=== PATIENT | male | born 1955 | race Caucasian/White ===

== ENCOUNTER → 2017-12-05 | Day surgery (SDC) | payer MEDICARE ==
[~2017-12-05] MED LIST: CEFAZOLIN SOD 1 GM VIAL ONE; DEXAMETHASONE SOD PHOS INJ 4 MG/ML VIAL ONE; FENTANYL CITRATE/PF 100MCG/2 ML INJ ONE; IOPAMIDOL 610MG/1ML 300 MG/ML VIAL IV ONE; LIDOCAINE HCL 2% LOCAL INJ 5 ML SDV VIAL INJ ONE; MIDAZOLAM HCL 2 MG/2 ML VIAL ONE; ONDANSETRON HCL INJ 2 MG/ML VIAL ONE; PROPOFOL IV EMULSION 10 MG/ML 20 ML VIAL ONE; SEVOFLURANE INHAL SOLN 250 ML PEN BTL ONE; SODIUM CHLORIDE 0.9% 1000ML 1,000 ML ONE; TAMSULOSIN HCL0.4 MG
--- NOTE | 2017-12-05 22:37 | Operative Report ---
DATE OF PROCEDURE: December 05, 2017 SERVICE: Urology. PREOPERATIVE DIAGNOSES: 1. Bilateral hydronephrosis, more prominent on the right side. 2. Bilateral double-J stent. 3. Bilateral convoluted and dilated ureters. 4. Renal failure. 5. History of nephrolithiasis. POSTOPERATIVE DIAGNOSES: 1. Bilateral hydronephrosis, more prominent on the right side. 2. Bilateral double-J stent. 3. Bilateral convoluted and dilated ureters. 4. Renal failure. 5. History of nephrolithiasis. OPERATIONS PERFORMED: 1. Cystoscopy, removal of double-J stent from the left side. 2. Left retrograde pyelograms under fluoroscopic control. 3. Left ureteroscopy. 4. Placement of double-J stent 6-Mexican 24 cm long to the left side. 5. Removal of stent from the right side not related to the contralateral side. 6. Right retrograde pyelograms under fluoroscopic control. 7. Right ureteroscopy. 8. Placement of stent 7-Mexican 24 cm long to the right side. 9. Interpretation of x-ray, radiologist not present. 10. Supervision of fluoroscopy, radiologist not present. DATA ACQUISITION TECHNICIAN: None. ANESTHESIA: General. CLINICAL INDICATION NOTE: This is a 62-year-old well known to me. He has chronic renal failure, diabetes mellitus, bilateral hydronephrosis, and bilateral stents. His creatinine is about 3. Patient was brought for reassessment and change of stent. DESCRIPTION OF PROCEDURE AND FINDINGS: After proper level of anesthesia was achieved, the patient was placed in lithotomy position, prepped and draped in usual sterile fashion. Urethra inspected is unremarkable, but the outlet is obstructed somewhat by enlarged prostate. Bladder is trabeculated. Double-J stent is protruding from both ureteral orifices. The left double-J stent was removed. Wire was kept in place. Retrograde pyelograms demonstrating dilated upper collecting system and convoluted ureter. A guidewire was kept in place and a flexible ureteroscopy was done. No intrinsic lesions were identified. The wire was kept in place, and a 6-Mexican 24 cm long double J-stent was properly positioned on the left side. Following this, the same procedure was repeated in the contralateral side. interpretation of x-ray was done by me as well as supervision of fluoroscopy, radiologist not present. Patient tolerated the procedure well, was transferred in satisfactory condition to recovery room. Patient will be followed. Postop instruction given. Job#: [id number]
== END | disposition home or self-care (01) ==
LOC: OR 10:43
PROVIDERS: ATTEND Urology
DX: N13.30 Unspecified hydronephrosis (principal); Z46.6 Encounter for fitting and adjustment of urinary device; N28.9 Disorder of kidney and ureter, unspecified; N32.89 Other specified disorders of bladder; Z87.442 Personal history of urinary calculi; E11.22 Type 2 diabetes mellitus with diabetic chronic kidney disease; I12.9 Hypertensive chronic kidney disease with stage 1 through stage 4 chronic kidney disease, or unspecified chronic kidney disease; N18.9 Chronic kidney disease, unspecified; Z01.810 Encounter for preprocedural cardiovascular examination
CPT/HCPCS: 52332; 52351; 74420; 93005; C2617; J0690; J1100; J2001; J2250; J2405; J7030; Q9967

== ENCOUNTER → 2018-04-10 | Day surgery (SDC) | payer MEDICARE ==
[~2018-04-10] MED LIST changes: +BELLADONNA/OPIUM 30 MG SUPP RC ONE; +IOPAMIDOL 300MG/ML 50ML INFUS..BTL IV ONE; -IOPAMIDOL 610MG/1ML 300 MG/ML VIAL IV ONE; -SODIUM CHLORIDE 0.9% 1000ML 1,000 ML ONE; -TAMSULOSIN HCL0.4 MG; +TAMSULOSIN HCL0.4 MG PO
[2018-04-10 08:30] LABS: ANION GAP 15.3 mmol/L (8-16); CALCIUM 9.3 mg/dL (8.4-10.2); CREATININE, SERUM 2.53 mg/dL (0.72-1.25); POTASSIUM 4.3 mmol/L (3.5-5.1)
--- NOTE | 2018-04-10 11:41 | Operative Report ---
DATE OF PROCEDURE: April 10, 2018 SERVICE: Urology. PREOPERATIVE DIAGNOSES 1. Bilateral hydronephrosis. 2. Bilateral hydroureter with convoluted ureter. 3. Bilateral double-J stent. 4. Chronic renal failure. POSTOPERATIVE DIAGNOSES 1. Bilateral hydronephrosis. 2. Bilateral hydroureter with convoluted ureter. 3. Bilateral double-J stent. 4. Chronic renal failure. OPERATION PERFORMED 1. Cystoscopy and removal of double-J stent from the right side. 2. Right retrograde pyelogram under fluoroscopic control. 3. Right ureteroscopy. 4. Placement of double-J stent to the right side, 7 Slovenian, 24 cm long. 5. Removal of double-J stent from the left side. 6. Left retrograde pyelogram under fluoroscopic control, not related to the other side. 7. Left ureteroscopy, not related to the other side. 8. Placement of double-J stent, 7 Slovenian, 24 cm long, to the left side. 9. Interpretation of x-ray. Radiologist not present. 10. Supervision of fluoroscopy. Radiologist not present. CARPENTERS SUPERVISOR: None. ANESTHESIA: General. CLINICAL INDICATION NOTE: This is a 62-year-old patient with chronic renal failure, bilateral hydro and hydroureter. He has stents on both sides. He was brought for reassessment and probably change of stent. The patient has renal failure. However, he is not requiring dialysis. DESCRIPTION OF PROCEDURE AND FINDINGS: After proper level of anesthesia was achieved, the patient was placed in lithotomy position, prepped and draped the usual sterile fashion. Urethra was inspected and was unremarkable. Bladder outlet is somewhat obstructed by large prostate. Bladder is trabeculated. Double-J stent is protruding from both sides. No tumor seen. The double-J stent from the right side was removed. An open-ended catheter was inserted. Retrograde pyelogram demonstrated massive hydro and convoluted ureter with section of dilation. A guidewire was kept in place, and a flexible ureteroscopy was done. No intrinsic lesions were identified. Ureter is quite convoluted. The wire was kept in place, and a 7-Slovenian, 24 cm long, double-J stent was properly positioned on the right side. Following this, the same procedure was repeated on the other side, not related to the right side. Again, the findings were similar. Hydronephrosis was somewhat less. No tumor or foreign body seen. After ureteroscopy, a guidewire was kept in place, and the same double-J stent, 7 x 24, was placed. Patient tolerated the procedure well and was transferred in satisfactory condition to the recovery room. Will be followed as outpatient. Job#: [id number]
== END | disposition home or self-care (01) ==
LOC: OR 07:23
PROVIDERS: ATTEND Urology
DX: N13.30 Unspecified hydronephrosis (principal); Z46.6 Encounter for fitting and adjustment of urinary device; N18.4 Chronic kidney disease, stage 4 (severe); N40.0 Benign prostatic hyperplasia without lower urinary tract symptoms; N32.89 Other specified disorders of bladder; N28.89 Other specified disorders of kidney and ureter; R00.1 Bradycardia, unspecified; Z01.810 Encounter for preprocedural cardiovascular examination
CPT/HCPCS: 36415; 52332; 52351; 74420; 80048; 93005; J0690; J1100; J2001; J2250; J2405; Q9967

== ENCOUNTER → 2018-07-31 | Day surgery (SDC) | payer MEDICARE ==
[2018-07-25 12:01] LABS: INR 0.94; PARTIAL THROMBOPLASTIN TIME 30.5 seconds (23.8-35.5); PROTHROMBIN TIME 13.4 seconds (11.9-14.5)
[~2018-07-31] MED LIST changes: -BELLADONNA/OPIUM 30 MG SUPP RC ONE; +HYDROCODONE PO; -IOPAMIDOL 300MG/ML 50ML INFUS..BTL IV ONE; +IOPAMIDOL 610MG/1ML 300 MG/ML VIAL IV ONE; +TYLENOL PO
[2018-07-31 11:30] VITALS: BP 123/71
--- NOTE | 2018-07-31 12:40 | Operative Report ---
DATE OF PROCEDURE: July 31, 2018 SERVICE: Urology. PREOPERATIVE DIAGNOSES: 1. Bilateral hydronephrosis. 2. Bilateral ureteral stents. 3. Renal failure. 4. Microhematuria. POSTOPERATIVE DIAGNOSES: 1. Bilateral hydronephrosis. 2. Bilateral ureteral stents. 3. Renal failure. 4. Microhematuria. OPERATIONS PERFORMED: 1. Cystoscopy and removal of left double-J stent. Not related to the contralateral side. 2. Left retrograde pyelograms under fluoroscopic control. 3. Left ureteroscopy. 4. Placement of double-J stent 7-Paraguayan 24 cm long to the left side. 5. Removal of double-J stent from the right side. 6. Right retrograde pyelograms under fluoroscopic control. 7. Right ureteroscopy. 8. Placement of double-J stent 7-Paragu[place] 24 cm long to the right side. 9. Interpretation of x-ray. Radiologist not present. 10. Supervision of fluoroscopy. Radiologist not present. ROOM SERVICE SUPERVISOR: None. ANESTHESIA: General. CLINICAL INDICATION NOTE: This is a 63-year-old patient with a history of acute on chronic renal failure, who has bilateral hydronephrosis and hydroureter and is treated with double-J stents. He was brought for reassessment and change of stents. Procedure was discussed with the patient. Potential benefits and complications discussed, explained and accepted. DESCRIPTION OF PROCEDURE AND FINDINGS: After the proper level of anesthesia was achieved, the patient was placed in lithotomy position and prepped and draped in sterile fashion. Urethra inspected, is unremarkable. The outlet is minimally obstructed by a small prostate. Bladder is somewhat trabeculated. Double-J stents are present on both sides. The left double-J stent was out to the urethral meatus. A guidewire was passed through it and advanced to the kidney. Open-end catheter inserted and retrograde pyelogram demonstrating some dilation and convoluted ureter as well as some dilation of the upper collecting system. The guidewire was kept in place, and a flexible ureteroscopy was done. No intrinsic lesions were identified in the pelvis or ureters. Wire was kept in place, and a double-J stent 7-Paraguayan 24 cm long was properly positioned on the left side. Following this, same procedure was repeated in the contralateral side. Again no intrinsic lesions were identified on ureteroscopy, and following the ureteroscopy, a double-J stent 7-Paraguayan 24 cm long was properly positioned. The bladder was then irrigated. The scope was removed, and patient was transferred in satisfactory condition to recovery room. He will be followed as outpatient. Job#: [id number]
== END | disposition home or self-care (01) ==
LOC: OR 07:56
PROVIDERS: ATTEND Urology
DX: N13.30 Unspecified hydronephrosis (principal); R31.29 Other microscopic hematuria; Z46.6 Encounter for fitting and adjustment of urinary device; I12.0 Hypertensive chronic kidney disease with stage 5 chronic kidney disease or end stage renal disease; N18.6 End stage renal disease; Z99.2 Dependence on renal dialysis; Z01.810 Encounter for preprocedural cardiovascular examination; Z01.812 Encounter for preprocedural laboratory examination
CPT/HCPCS: 36415; 52332; 74420; 85610; 85730; 93005; C2617; J0690; J1100; J2001; J2250; J2405; J2704; Q9967

== ENCOUNTER 2021-09-16 19:43 | Inpatient (IN) | payer MEDICARE ==
[~2021-09-16] VITALS: Ht 167.6 cm; Wt 68.0 kg
[~2021-09-16 19:43] MED LIST changes: +AMLODIPINE BESYL5 MG PO; +CARVEDILOL25 MG PO; -CEFAZOLIN SOD 1 GM VIAL ONE; -DEXAMETHASONE SOD PHOS INJ 4 MG/ML VIAL ONE; -FENTANYL CITRATE/PF 100MCG/2 ML INJ ONE; -IOPAMIDOL 610MG/1ML 300 MG/ML VIAL IV ONE; -LIDOCAINE HCL 2% LOCAL INJ 5 ML SDV VIAL INJ ONE; -MIDAZOLAM HCL 2 MG/2 ML VIAL ONE; -ONDANSETRON HCL INJ 2 MG/ML VIAL ONE; -PROPOFOL IV EMULSION 10 MG/ML 20 ML VIAL ONE; -SEVOFLURANE INHAL SOLN 250 ML PEN BTL ONE
[2021-09-16 20:20] LABS: BASOPHILS # (AUTO) 0.1 (0.0-0.1); BASOPHILS % 0.7 % (0.0-1.0); EOSINOPHILS # (AUTO) 0.1 (0.0-0.4); EOSINOPHILS % 1.5 % (0.0-6.0); HEMATOCRIT 44.7 % (38.2-49.6); HEMOGLOBIN 14.1 g/dL (14.0-18.0); LYMPHOCYTES # (AUTO) 1.6 (1.0-3.2); LYMPHOCYTES % 16.9 % (18.0-39.1); MEAN CORPUSCULAR HEMOGLOBIN 29.6 pg (28-32); MEAN CORPUSCULAR HGB CONC 31.5 g/dL (31-35); MEAN CORPUSCULAR VOLUME 93.7 fL (81-99); MONOCYTES # (AUTO) 0.9 (0.2-0.8); MONOCYTES % 9.5 % (4.4-11.3); NEUTROPHILS # (AUTO) 6.5 (2.1-6.9); NEUTROPHILS % 71.2 % (38.7-80.0); PLATELET COUNT 222 x10e3/uL (140-360); RED BLOOD COUNT 4.77 x10e6/uL (4.3-5.7); RED CELL DISTRIBUTION WIDTH 14.4 % (11.7-14.4)
[2021-09-16 20:27] LABS: INR 1.09; PARTIAL THROMBOPLASTIN TIME 29.2 seconds (23.8-35.5)
[2021-09-16 20:41] LABS: ALBUMIN 3.4 g/dL (3.5-5.0); ANION GAP 15.3 mmol/L (8-16); CALCIUM 8.6 mg/dL (8.4-10.2); CREATININE, SERUM 2.75 mg/dL (0.72-1.25); POTASSIUM 4.3 mmol/L (3.5-5.1)
[2021-09-16 20:47] LABS: CREATINE KINASE MB 3.9 ng/mL (0-5.0)
[2021-09-16] MEDS ORDERED: FUROSEMIDE INJ 10 MG/ML 4 ML VIAL IV ONE (21:15)
[2021-09-17] VITALS (10 sets, daily range): BP systolic 137–169; BP diastolic 73–98
[2021-09-17 06:23] LABS: BASOPHILS # (AUTO) 0.1 (0.0-0.1); BASOPHILS % 0.7 % (0.0-1.0); EOSINOPHILS # (AUTO) 0.3 (0.0-0.4); EOSINOPHILS % 3.2 % (0.0-6.0); HEMATOCRIT 42.1 % (38.2-49.6); HEMOGLOBIN 13.4 g/dL (14.0-18.0); LYMPHOCYTES # (AUTO) 2.4 (1.0-3.2); LYMPHOCYTES % 27.2 % (18.0-39.1); MEAN CORPUSCULAR HEMOGLOBIN 29.5 pg (28-32); MEAN CORPUSCULAR HGB CONC 31.8 g/dL (31-35); MEAN CORPUSCULAR VOLUME 92.7 fL (81-99); MONOCYTES % 10.9 % (4.4-11.3); NEUTROPHILS # (AUTO) 5.1 (2.1-6.9); NEUTROPHILS % 57.9 % (38.7-80.0); PLATELET COUNT 188 x10e3/uL (140-360); RED BLOOD COUNT 4.54 x10e6/uL (4.3-5.7); RED CELL DISTRIBUTION WIDTH 14.3 % (11.7-14.4)
[2021-09-17 06:38] LABS: ANION GAP 14.9 mmol/L (8-16); CALCIUM 8.7 mg/dL (8.4-10.2); CREATININE, SERUM 2.98 mg/dL (0.72-1.25); POTASSIUM 3.9 mmol/L (3.5-5.1)
[2021-09-17 06:57] LABS: CREATINE KINASE MB 3.2 ng/mL (0-5.0)
[2021-09-17] MEDS: FUROSEMIDE INJ 10 MG/ML 4 ML VIAL IV SCH ×2 (09:10→17:03)
[2021-09-17] MEDS: AMLODIPINE BESYLATE 5 MG TAB PO SCH (12:10)
[2021-09-17] MEDS: CARVEDILOL 3.125 MG TAB PO SCH (17:03)
[2021-09-17] MEDS: TAMSULOSIN HCL 0.4 MG CAP PO SCH (20:12)
[2021-09-18] VITALS (8 sets, daily range): BP systolic 131–157; BP diastolic 79–94
[2021-09-18 05:33] LABS: ANION GAP 15.3 mmol/L (8-16); CALCIUM 8.7 mg/dL (8.4-10.2); CREATININE, SERUM 3.12 mg/dL (0.72-1.25); POTASSIUM 3.3 mmol/L (3.5-5.1)
[2021-09-18] MEDS: AMLODIPINE BESYLATE 5 MG TAB PO SCH (08:50)
[2021-09-18] MEDS: CARVEDILOL 3.125 MG TAB PO SCH ×2 (08:50→17:23)
[2021-09-18] MEDS: FUROSEMIDE INJ 10 MG/ML 4 ML VIAL IV SCH ×2 (08:50→17:23)
[2021-09-18] MEDS ORDERED: POTASSIUM CHLORIDE 20 MEQ TAB CR PO ONE (15:00)
[2021-09-18] MEDS: TAMSULOSIN HCL 0.4 MG CAP PO SCH (16:43)
[2021-09-19] VITALS (9 sets, daily range): BP systolic 134–150; BP diastolic 78–92
[2021-09-19 06:21] LABS: ANION GAP 17.5 mmol/L (8-16); CALCIUM 9.2 mg/dL (8.4-10.2); CREATININE, SERUM 3.76 mg/dL (0.72-1.25); POTASSIUM 3.5 mmol/L (3.5-5.1)
[2021-09-19] MEDS: CARVEDILOL 3.125 MG TAB PO SCH ×2 (09:00→15:34)
[2021-09-19] MEDS ORDERED: IOPAMIDOL 300MG/ML 50ML INFUS..BTL IV ONE (09:12)
[2021-09-19] MEDS ORDERED: BELLADONNA/OPIUM 30 MG SUPP RC ONE (09:13)
[2021-09-19] MEDS: FUROSEMIDE INJ 10 MG/ML 4 ML VIAL IV SCH ×2 (09:18→15:34)
[2021-09-19] MEDS ORDERED: FENTANYL CITRATE/PF 100MCG/2 ML INJ ONE (12:13)
[2021-09-19] MEDS ORDERED: MIDAZOLAM HCL 2 MG/2 ML VIAL ONE (12:13)
[2021-09-19] MEDS ORDERED: LIDOCAINE HCL 2% LOCAL INJ 5 ML SDV VIAL INJ ONE (12:39)
[2021-09-19] MEDS ORDERED: ONDANSETRON HCL INJ 2MG/ML 2ML 2 MG/ML VIAL ONE (12:39)
[2021-09-19] MEDS ORDERED: POVIDONE IODINE 0.05% 0.05 % ML PO ONE (12:39)
[2021-09-19] MEDS ORDERED: DEXAMETHASONE SOD PHOS INJ 4 MG/ML SDV ONE (12:39)
[2021-09-19] MEDS ORDERED: SEVOFLURANE INHAL SOLN 250 ML PEN BTL ONE (12:39)
[2021-09-19] MEDS ORDERED: PROPOFOL IV EMULSION 10 MG/ML 20 ML VIAL ONE (12:39)
[2021-09-19] MEDS: POTASSIUM CHLORIDE 20 MEQ TAB CR PO SCH (15:33)
[2021-09-19] MEDS: AMLODIPINE BESYLATE 5 MG TAB PO SCH (15:34)
[2021-09-19] MEDS ORDERED: SODIUM CHLORIDE 0.9% 500ML 500 ML IV SCH (16:00)
[2021-09-19] MEDS: TAMSULOSIN HCL 0.4 MG CAP PO SCH (22:27)
[2021-09-20 00:44] VITALS: BP 117/78
[2021-09-20 03:48] VITALS: BP 105/84
[2021-09-20 06:14] LABS: ANION GAP 12.4 mmol/L (8-16); CALCIUM 8.4 mg/dL (8.4-10.2); CREATININE, SERUM 0.92 mg/dL (0.72-1.25)
[2021-09-20 06:19] LABS: POTASSIUM 4.4 mmol/L (3.5-5.1)
[2021-09-20 08:00] VITALS: BP 130/91
[2021-09-20] MEDS: AMLODIPINE BESYLATE 5 MG TAB PO SCH (09:00)
[2021-09-20] MEDS: POTASSIUM CHLORIDE 20 MEQ TAB CR PO SCH (09:00)
[2021-09-20] MEDS: CARVEDILOL 3.125 MG TAB PO SCH (09:00)
[2021-09-20 09:47] VITALS: BP 130/91
[2021-09-20 12:00] VITALS: BP 136/83
[2021-09-20 15:22] LABS: ANION GAP 15.6 mmol/L (8-16); CALCIUM 8.9 mg/dL (8.4-10.2); POTASSIUM 4.6 mmol/L (3.5-5.1)
[2021-09-20 15:27] LABS: CREATININE, SERUM 3.24 mg/dL (0.72-1.25)
== END 2021-09-20 15:12 | disposition home or self-care (01) | DRG 987 ==
LOC: ER 19:48 → ERHOLD 22:33 → MED/SURG 09-17 00:21
PROC: 0T788DZ Dilation of Bilateral Ureters with Intraluminal Device, Via Natural or Artificial Opening Endoscopic (ICD-10-PCS; 2021-09-19)
PROC: BT141ZZ Fluoroscopy of Kidneys, Ureters and Bladder using Low Osmolar Contrast (ICD-10-PCS; 2021-09-19)
PROC: 0TP98DZ Removal of Intraluminal Device from Ureter, Via Natural or Artificial Opening Endoscopic (ICD-10-PCS; principal; 2021-09-19 07:30)
DX: I13.0 Hypertensive heart and chronic kidney disease with heart failure and stage 1 through stage 4 chronic kidney disease, or unspecified chronic kidney disease (principal); I50.23 Acute on chronic systolic (congestive) heart failure; N13.2 Hydronephrosis with renal and ureteral calculous obstruction; N13.8 Other obstructive and reflux uropathy; N17.9 Acute kidney failure, unspecified; N18.4 Chronic kidney disease, stage 4 (severe); E78.5 Hyperlipidemia, unspecified; Z96.0 Presence of urogenital implants; I25.10 Atherosclerotic heart disease of native coronary artery without angina pectoris; F12.90 Cannabis use, unspecified, uncomplicated; Z72.89 Other problems related to lifestyle; E87.6 Hypokalemia; D64.9 Anemia, unspecified
CPT/HCPCS: 36415; 71045; 74420; 80048; 80053; 82550; 82553; 83880; 84484; 85025; 85610; 85730; 93005; 93306; 94799; 99284; C1758; C1769; C2617; J0690; J1100; J1940; J2001; J2250; J2405; J3010; J7040; U0002

== ENCOUNTER 2021-10-19 14:34 | Observation (INO) | payer MEDICARE ==
[~2021-10-19] VITALS: Ht 167.6 cm; Wt 68.0 kg
[2021-10-19 15:03] LABS: BASOPHILS # (AUTO) 0.1 (0.0-0.1); BASOPHILS % 1.2 % (0.0-1.0); EOSINOPHILS # (AUTO) 0.2 (0.0-0.4); EOSINOPHILS % 2.6 % (0.0-6.0); HEMATOCRIT 47.4 % (38.2-49.6); HEMOGLOBIN 14.4 g/dL (14.0-18.0); LYMPHOCYTES # (AUTO) 1.3 (1.0-3.2); LYMPHOCYTES % 14.8 % (18.0-39.1); MEAN CORPUSCULAR HEMOGLOBIN 28.8 pg (28-32); MEAN CORPUSCULAR HGB CONC 30.4 g/dL (31-35); MEAN CORPUSCULAR VOLUME 94.8 fL (81-99); MONOCYTES # (AUTO) 0.8 (0.2-0.8); MONOCYTES % 9.3 % (4.4-11.3); NEUTROPHILS # (AUTO) 6.2 (2.1-6.9); NEUTROPHILS % 71.8 % (38.7-80.0); PLATELET COUNT 189 x10e3/uL (140-360); RED CELL DISTRIBUTION WIDTH 14.2 % (11.7-14.4)
[2021-10-19] MEDS ORDERED: CEFTRIAXONE 1 GM in SODIUM CHLORIDE 0.9% 50ML 50 ML IV STA (15:20)
[2021-10-19 15:21] LABS: ALBUMIN 3.5 g/dL (3.5-5.0); ALBUMIN/GLOBULIN RATIO 0.9 (0.8-2.0); ANION GAP 17.3 mmol/L (8-16); CALCIUM 9.3 mg/dL (8.4-10.2); CREATININE, SERUM 3.36 mg/dL (0.72-1.25); POTASSIUM 4.3 mmol/L (3.5-5.1)
[2021-10-19 15:27] LABS: CREATINE KINASE MB 5.9 ng/mL (0-5.0)
[2021-10-19] MEDS ORDERED: HYDRALAZINE HCL 20 MG/ML VIAL IV ONE (15:30)
[2021-10-19] MEDS ORDERED: FUROSEMIDE INJ 10 MG/ML 4 ML VIAL IV ONE (15:45)
[2021-10-19] MEDS ORDERED: LEVALBUTEROL HCL SOLN NEBU 0.63 MG/3 ML NEB INH ONE (15:45)
[2021-10-19] MEDS ORDERED: HYDRALAZINE HCL 20 MG/ML VIAL IV PRN (16:15)
[2021-10-19] MEDS ORDERED: CLONIDINE HCL 0.1 MG TAB PO ONE (16:45)
[2021-10-19] MEDS: CARVEDILOL 12.5 MG TAB PO SCH (17:52)
[2021-10-19] MEDS: FUROSEMIDE INJ 10 MG/ML 4 ML VIAL IV SCH (21:00)
[2021-10-19] MEDS: TAMSULOSIN HCL 0.4 MG CAP PO SCH (22:40)
[2021-10-20] VITALS (9 sets, daily range): BP systolic 128–168; BP diastolic 74–114
[2021-10-20 07:44] LABS: BASOPHILS # (AUTO) 0.1 (0.0-0.1); BASOPHILS % 0.9 % (0.0-1.0); EOSINOPHILS # (AUTO) 0.3 (0.0-0.4); EOSINOPHILS % 3.3 % (0.0-6.0); HEMOGLOBIN 12.9 g/dL (14.0-18.0); LYMPHOCYTES # (AUTO) 1.8 (1.0-3.2); LYMPHOCYTES % 22.2 % (18.0-39.1); MEAN CORPUSCULAR HEMOGLOBIN 28.9 pg (28-32); MEAN CORPUSCULAR HGB CONC 30.7 g/dL (31-35); MEAN CORPUSCULAR VOLUME 94.2 fL (81-99); MONOCYTES # (AUTO) 0.9 (0.2-0.8); MONOCYTES % 11.6 % (4.4-11.3); NEUTROPHILS % 61.9 % (38.7-80.0); PLATELET COUNT 168 x10e3/uL (140-360); RED BLOOD COUNT 4.46 x10e6/uL (4.3-5.7); RED CELL DISTRIBUTION WIDTH 14.2 % (11.7-14.4)
[2021-10-20 08:02] LABS: ANION GAP 12.5 mmol/L (8-16); CALCIUM 8.6 mg/dL (8.4-10.2); CREATININE, SERUM 3.27 mg/dL (0.72-1.25); POTASSIUM 3.5 mmol/L (3.5-5.1)
[2021-10-20] MEDS ORDERED: NON-FORMULARY MEDICATION (Carvedilol 25 MG) PO SCH (09:00)
[2021-10-20] MEDS: FUROSEMIDE INJ 10 MG/ML 4 ML VIAL IV SCH ×2 (09:26→21:22)
[2021-10-20] MEDS: CARVEDILOL 12.5 MG TAB PO SCH ×2 (09:27→16:38)
[2021-10-20] MEDS: AMLODIPINE BESYLATE 5 MG TAB PO SCH (09:27)
[2021-10-20] MEDS: TAMSULOSIN HCL 0.4 MG CAP PO SCH (21:22)
[2021-10-21] VITALS: BP 135/80
[2021-10-21 04:00] VITALS: BP 145/81
[2021-10-21 07:25] LABS: ANION GAP 16.4 mmol/L (8-16); CALCIUM 8.7 mg/dL (8.4-10.2); CREATININE, SERUM 3.08 mg/dL (0.72-1.25); POTASSIUM 3.4 mmol/L (3.5-5.1)
[2021-10-21 08:19] VITALS: BP 140/85
[2021-10-21 09:19] VITALS: BP 140/85
[2021-10-21] MEDS: CARVEDILOL 12.5 MG TAB PO SCH (09:22)
[2021-10-21] MEDS: FUROSEMIDE INJ 10 MG/ML 4 ML VIAL IV SCH (09:22)
[2021-10-21] MEDS: AMLODIPINE BESYLATE 5 MG TAB PO SCH (09:22)
[2021-10-21] MEDS ORDERED: POTASSIUM CHLORIDE 20 MEQ TAB CR PO NR (09:37)
[2021-10-21] MEDS ORDERED: LASIX40 MG PO (11:39)
[2021-10-21] MEDS ORDERED: COREG12.5 MG PO (11:39)
[2021-10-21 12:30] VITALS: BP 134/86
== END 2021-10-21 13:19 | disposition home or self-care (01) ==
LOC: ER 14:37 → ERHOLD 15:54 → MED/SURG2 10-20 01:22
DX: I13.0 Hypertensive heart and chronic kidney disease with heart failure and stage 1 through stage 4 chronic kidney disease, or unspecified chronic kidney disease (principal); I50.23 Acute on chronic systolic (congestive) heart failure; N18.4 Chronic kidney disease, stage 4 (severe); R06.03 Acute respiratory distress; E78.5 Hyperlipidemia, unspecified; I25.10 Atherosclerotic heart disease of native coronary artery without angina pectoris; N40.0 Benign prostatic hyperplasia without lower urinary tract symptoms; Z96.0 Presence of urogenital implants; N13.9 Obstructive and reflux uropathy, unspecified; Z72.89 Other problems related to lifestyle; F12.90 Cannabis use, unspecified, uncomplicated; Z20.822 Contact with and (suspected) exposure to COVID-19
CPT/HCPCS: 36415 ×3; 71045; 80048 ×2; 80053; 82550; 82553; 83880; 84484; 85025 ×2; 93005; 94640; 94799 ×3; 99284; G0378 ×3; J0360; J0456; J0696; J1940 ×3; J7050; U0002